=== PATIENT | male | born 1975 | race Caucasian/White ===

== ENCOUNTER 2018-03-12 14:26 | Outpatient (CLI) | payer OTHER ==
[2018-03-12 18:40] LABS: T4 (THYROXINE) 7.13 ug/dL (6.09-12.23)
[2018-03-12 18:43] LABS: THYROID STIMULATING HORMONE 2.31 uIU/mL (0.34-5.60)
[2018-03-12 18:50] LABS: TOTAL T3 0.99 ng/mL (0.87-1.78)
== END 2018-03-12 14:27 | disposition home or self-care (01) ==
LOC: LAB.F 14:26
PROVIDERS: ATTEND Registered Nurse
DX: E05.00 Thyrotoxicosis with diffuse goiter without thyrotoxic crisis or storm (principal)
CPT/HCPCS: 36415; 84436; 84443; 84480